=== PATIENT | male | born 1995 | race Caucasian/White ===

== ENCOUNTER 2020-09-26 08:00 | Outpatient (RCR) | payer OTHER, SELFPAY ==
--- NOTE | 2020-08-05 08:52 | PTOPEVAL ---
Thank you for referring Josue Thao to [facility].? The patient is scheduled to be seen for therapy? 2-3 x/week for 6 weeks. Please review, sign, date and return this plan of care HARLAN. I agree with and certify that the following plan of care is medically necessary. Referring Physician Date Attending Provider: Vanessa Martínez Diagnosis right patellar patellofemoral Onset 2017 Additional Evaluation Detail Hurt his knee in 2018 playing basketball. Does not remember how he injured his knee. Improved eventually, but did get worse. Subjective Information He c/o stabbing pains on the Query Text:As Reported By Patient/ inferior aspect of right knee Family that is severe and intermittent. He play volleyball 3x/wk. He has increased pain with sports, prolonged sitting position if unable to move legs. He has increased pain with running on uneven surfaces. He has greater pain with walking vs running. Difficulty with steps as well. He also has c/o left knee pain , but not as severe. He will go to the gym and lift weights, consistenting for free weights and machines. But has been avoiding his legs. He stretches his hamstrings, but not quads and hip flexors. He also plays disc golf. MD wanted 6 wk of therapy and f/u to discuss additional options for treatment. Diagnostic Tests X-Rays For This Problem Yes MRI For This Problem Yes: slight tear in meniscus Previous Treatments Previous Treatments For This Problem no Pain Assessment Pain Scale Used Numeric (1 - 10) Self Report Pain Assessment Left Knee(s) Reported Pain Level 1 Pain Description Aching,Sharp Pain Frequency Chronic Lowest Pain Intensity 0 Greatest Pain Intensity 3 Pain Aggravating Factors Prolonged Position,Stair Climbing,Walking,Weight Bearing/Standing Right Knee(s) Reported Pain Level 3 Pain Description Aching,Radiating,Sharp, Ting
--- NOTE | 2020-08-12 07:50 | PCPTNOTE ---
Patient did not show up for scheduled appointment this date; called patient who answered the phone call stating he was on his way for his 8 oclock appointment didn't realize it was at 7:30am.
--- NOTE | 2020-09-05 09:45 | PTOPEVAL ---
Thank you for referring Josue Thao to [facility].? The patient is scheduled to be seen for therapy?1 2 x/week for 4 weeks. Please review, sign, date and return this plan of care HARLAN. I agree with and certify that the following plan of care is medically necessary. Referring Physician Date Attending Provider: Vanessa Martínez Physical Therapy Progress Note Diagnosis right patellar patellofemoral Onset 2017 Additional Evaluation Detail Hurt his knee in 2018 playing basketball. Does not remember how he injured his knee. Improved eventually, but did get worse. Subjective Information States he does not have pain Query Text:As Reported By Patient/ as often at rest, except with Family driving. When he does have pain the intensity is less than before starting therapy. He has increased pain with increased walking, playing sports or driving. He will have increased pain if steps are part of his greater amount of activities. He is performing his HEP 4-5x/ wk. He is sore with the stretching. Pain Assessment Self Report Pain Assessment Left Knee(s) Reported Pain Level 1 Pain Description Stabbing Pain Frequency Chronic Lowest Pain Intensity 0 Greatest Pain Intensity 4 Pain Aggravating Factors Prolonged Position,Stair Climbing,Walking,Weight Bearing/Standing Right Knee(s) Reported Pain Level 3 Pain Description Sharp,Stabbing Pain Frequency Chronic Lowest Pain Intensity 2 Greatest Pain Intensity 8 Pain Aggravating Factors Prolonged Position,Stair Climbing,Walking,Weight Bearing/Standing Lower Extremity Range of Motion Knee Range of Motion Right Knee Flexion Range of Motion - Active 132 Left Knee Flexion Range of Motion - Active 132 Lower Extremity Muscle Strength Testing Hip Strength Bilateral Hip Flexion Strength 5 Normal Hip Extension Strength 5 Normal Hip Strength Comments right hip abd: 4-/5 left hip abd: 4-/5 Knee Strength Bilateral Knee Flexion Strength 5 Normal Knee Extension Strength 5 Normal Muscle Length Tamra
--- NOTE | 2020-09-13 08:51 | PCPTNOTE ---
Patient no showed to appointment this date. Patient was called but no answer. Left a voicemail with upcoming visit information.
--- NOTE | 2020-09-20 07:39 | PCPTNOTE ---
Patient called & cancelled scheduled appointment this date due to having to work.
--- NOTE | 2020-09-23 07:49 | PCPTNOTE ---
Patient called & cancelled scheduled appointment this date due to work.
--- NOTE | 2020-09-29 08:36 | PCPTNOTE ---
Patient called & cancelled scheduled appointment this date due to work. He will call to reschedule.
--- NOTE | 2020-10-17 08:52 | PCPTNOTE ---
Admitting Provider: Attending Provider: Vanessa Martínez Patient:Josue Thao Date of :1995 Discharge Note Patient has not returned for any further treatments since 09/26/2020, therefore he will be discharged at this time. Patient?s initial visit was on 08/05/2020 07:30 and he had a total of 14 visits. He demonstrated improved LE strength, tissue restrictions, improved pain and tolerance with recreational activities. He has been provided a home exercise program. The goals have been partially met at this time. Thank you for referring this patient to [facility]. Please review, sign, date and return this discharge summary HARLAN. I have been updated about the patient's current status and I agree with discharge from the above service at this time. Referring Physician Date
== END 2020-10-24 11:46 | disposition home or self-care (01) ==
LOC: ANHPT 08:00
DX: M22.2X1 Patellofemoral disorders, right knee (principal)
CPT/HCPCS: 97110; 97112; 97140; 97161